=== PATIENT | female | born 1960 | race Two or more races ===

== ENCOUNTER 2024-11-07 21:45 | Emergency (ER) | payer MEDICAID, OTHER ==
[~2024-11-07] VITALS: Ht 160 cm; Wt 76.0 kg
[~2024-11-07 21:45] MED LIST: LEVO750T68 PO
[2024-11-07 21:51] VITALS: BP 128/81; PULSE 63; RESP 18; TEMP 98.2; O2SAT 98
== END 2024-11-07 22:17 | disposition left against medical advice (07) ==
LOC: EMS 21:45
DX: R10.30 Lower abdominal pain, unspecified (principal); R42 Dizziness and giddiness; Z53.21 Procedure and treatment not carried out due to patient leaving prior to being seen by health care provider

== ENCOUNTER 2025-01-16 07:48 | Emergency (ER) | payer MEDICAID, OTHER ==
[~2025-01-16] VITALS: Ht 160 cm; Wt 68.2 kg
[2025-01-16 08:18] LABS: PLATELET COUNT (AUTO) 185 K/uL (150-450); RED BLOOD CELL COUNT(AUTO) 4.70 MIL/uL (4.00-5.20); RED CELL DISTRIBUTION WIDTH 13.4 % (11.5-14.5); WHITE BLOOD COUNT (AUTO) 9.7 K/uL (4.5-11.0)
[2025-01-16 08:28] LABS: CALCIUM, TOTAL 9.1 mg/dL (8.8-10.5); CREATININE 0.70 mg/dL (0.60-1.30); GLOMERULAR FILTR. RATE CALC > 60 mL/min (>60); GLUCOSE,RANDOM 121 mg/dL (70-110); SODIUM SERUM 141 mmol/L (136-145); UREA NITROGEN, BLOOD 12 mg/dL (7-18)
[2025-01-16 08:32] LABS: ASPARTATE AMINOTRANSFERASE 165.0 U/L (15-37); TOTAL PROTEIN, SERUM 8.0 g/dL (6.4-8.2)
[2025-01-16 08:38] LABS: TROPONIN I-HIGH SENSITIVITY 4 ng/L (<51)
[2025-01-16 12:59] LABS: TROPONIN I-HIGH SENSITIVITY 4 ng/L (<51)
[2025-01-16 13:18] LABS: APPEARANCE,URINE CLEAR (CLEAR); GLUCOSE, URINE (UA) NEGATIVE (NEGATIVE); LEUKOCYTE ESTERASE ,URINE NEGATIVE (NEGATIVE); NITRATE,URINE NEGATIVE (NEGATIVE); OCCULT BLOOD,URINE NEGATIVE (NEGATIVE); SPECIFIC GRAVITIY, URINE 1.012 (1.003-1.030)
[2025-01-16 15:13] VITALS: BP 139/79; PULSE 78; RESP 22; TEMP 98.1; O2SAT 99
[2025-01-16] MEDS ORDERED: FAMO20 PO (15:14)
== END 2025-01-16 15:30 | disposition home or self-care (01) ==
LOC: EMS 07:53
DX: R10.13 Epigastric pain (principal); R11.2 Nausea with vomiting, unspecified; R19.7 Diarrhea, unspecified; R74.8 Abnormal levels of other serum enzymes; Z87.442 Personal history of urinary calculi; Z98.51 Tubal ligation status
CPT/HCPCS: 71045; 76700; 80048; 80076; 81003; 83690; 84484; 85025; 93005; 99285; 36415-L1; 36415-TC